=== PATIENT | male | born 1960 | race Caucasian/White ===

== ENCOUNTER 2023-05-27 01:13 | Emergency (ER) | payer OTHER ==
[~2023-05-27] VITALS: Ht 190.5 cm; Wt 134.3 kg
[2023-05-27 01:15] VITALS: BP 170/80; TEMP 99; O2SAT 97
[2023-05-27] MEDS ORDERED: PRED20TA PO (01:26)
[2023-05-27] MEDS ORDERED: DOXY100C3 (01:26)
[2023-05-27] MEDS ORDERED: METH2.5T48 (01:26)
[2023-05-27] MEDS ORDERED: FOLI1TAB11 PO (01:26)
[2023-05-27] MEDS ORDERED: BENZ200C70 (01:26)
[2023-05-27] MEDS ORDERED: XARE20TA (01:26)
[2023-05-27] MEDS: IPRATROPIUM 0.5MG/ALBUTEROL 2.5MG INH SOL UD 3ML (DUONEB) NEB PRN ×3 (03:17→04:08)
[2023-05-27] MEDS ORDERED: methylPREDNISolone 125MG 2ML VIAL IV ONE (03:25)
[2023-05-27 03:28] LABS: BASO # 0.1 10^3/uL (0.0-0.2); BASO % 0.6 % (0.0-1.0); EOS # 0.1 10^3/uL (0.0-0.5); HEMATOCRIT 45.2 % (42.0-52.0); LYMPH # 1.4 10^3/uL (1.5-5.0); LYMPH % 15.4 % (24.0-44.0); MEAN CORPUSCULAR HGB CONC 33.2 g/dl (32.0-36.5); MEAN CORPUSCULAR VOLUME 93.4 fl (80.0-96.0); MONO % 10.7 % (2.0-8.0); NEUTROPHILS # 6.4 10^3/uL (1.5-8.5); NEUTROPHILS % 72.1 % (36.0-66.0); PLATELET COUNT, AUTOMATED 302 10^3/uL (150-450); RED BLOOD COUNT 4.84 10^6/uL (4.30-6.10); WHITE BLOOD COUNT 8.9 10^3/uL (4.0-10.0)
[2023-05-27 03:46] LABS: CK-MB VALUE MASS < 1.0 NG/ML (<3.6)
[2023-05-27 03:48] LABS: BLOOD UREA NITROGEN 18 MG/DL (9-23); CARBON DIOXIDE LEVEL 24 MMOL/L (20-31); CHLORIDE LEVEL 106 MMOL/L (98-107); CPK CREATINE PHOSPHOKINASE 42 U/L (46-171); CREATININE FOR GFR 0.74 MG/DL (0.70-1.30); GLOMERULAR FILTRATION RATE > 60.0 (>49); GLUCOSE, FASTING 144 MG/DL (74-106); MAGNESIUM LEVEL 1.8 MG/DL (1.8-2.4); MB/CK RELATIVE INDEX 2.38 (< OR =4); POTASSIUM SERUM 3.7 MMOL/L (3.5-5.1); SODIUM LEVEL 141 MMOL/L (136-145)
[2023-05-27 03:55] LABS: PROCALCITONIN <0.04 ng/ml
[2023-05-27 05:23] VITALS: O2SAT 93
[2023-05-27] MEDS ORDERED: COMBAER6 INH (05:29)
[2023-05-27] MEDS ORDERED: COMBIVENT RESPIMAT 100-20MCG INHALER 4GM INH STA (05:31)
== END 2023-05-27 07:01 | disposition home or self-care (01) ==
LOC: M ED 01:13
DX: J21.0 Acute bronchiolitis due to respiratory syncytial virus (principal); R06.00 Dyspnea, unspecified; M32.10 Systemic lupus erythematosus, organ or system involvement unspecified; G47.33 Obstructive sleep apnea (adult) (pediatric); I48.0 Paroxysmal atrial fibrillation; Z86.79 Personal history of other diseases of the circulatory system; Z88.1 Allergy status to other antibiotic agents; Z79.01 Long term (current) use of anticoagulants; Z79.52 Long term (current) use of systemic steroids; Z79.899 Other long term (current) drug therapy
CPT/HCPCS: 71045; 80048; 82550; 82553; 83605; 83735; 83880; 84145; 84484; 85025; 87040; 87486; 87581; 87633; 87798; 93005; 94640; 96374; 99284; J2930